=== PATIENT | female | born 1990 | race American Indian/Alaskan Native ===

== ENCOUNTER 2017-02-04 01:44 | Emergency (ER) | payer SELFPAY ==
[2017-02-04 02:34] LABS: Bacteria,Urine 1+ /HPF (Negative); Bilirubin,Urine NEG (Negative); Blood,Urine NEG (Negative); Ketones,Urine NEG (Negative); Leukocyte Esterase,Urine NEG (Negative); Mucus,Urine FEW /HPF; Nitrite,Urine NEG (Negative); RBC,Urine < 1.0 /HPF (0.0-6.0); Urobilinogen,Urine < 2.0 mg/dL (<2.0)
[2017-02-04 02:47] LABS: Basophils % (Auto) 0.4 % (0.0-1.8); Eosinophils % (Auto) 0.4 % (0.0-4.3); Hemoglobin 10.4 gm/dl (10.1-14.3); Mean Corpuscular HGB Conc 33 % (30-34); Mean Corpuscular Hemoglobin 28 pg (28-32); Mean Corpuscular Volume 86 fl (79-97); Platelet Count 487 K/mm3 (140-440); Red Blood Count 3.71 M/mm3 (3.65-5.03); Red Cell Distribution Width 15.6 % (13.2-15.2); White Blood Count 5.1 K/mm3 (4.5-11.0)
[2017-02-04 03:04] LABS: Alanine Aminotransferase 112 units/L (7-56); Albumin 3.5 g/dL (3.9-5); Albumin/Globulin Ratio 0.5 %; Alkaline Phosphatase 146 units/L (35-129); Anion Gap 23 mmol/L; BUN/Creatinine Ratio 13.33; Blood Urea Nitrogen 12 mg/dL (7-17); Carbon Dioxide 10 mmol/L (22-30); Chloride 102.7 mmol/L (98-107); Glucose 135 mg/dL (65-100); Lipase 33 units/L (13-60); Potassium 3.9 mmol/L (3.6-5.0); Sodium 132 mmol/L (137-145); Total Protein 10.6 g/dL (6.3-8.2)
[2017-02-04] MEDS ORDERED: TYLENOL ONE (03:31)
[2017-02-04] MEDS: TYLENOL PO ONE ×2 (03:32→04:14)
[2017-02-04] MEDS ORDERED: ZOFRAN ODT PO ONE (03:33)
[2017-02-04] MEDS ORDERED: ZOFRAN ODT ONE (03:33)
[2017-02-04] MEDS ORDERED: MORPHINE IV ONE (10:31)
[2017-02-04] MEDS ORDERED: ZOFRAN IV ONE (10:31)
[2017-02-04] MEDS ORDERED: NACL 0.9% 1000 ML 1,000 ML IV ONE (10:31)
--- NOTE | 2017-02-04 10:46 | Emergency Department Report ---
ED N/V/D HPI - General Chief complaint: Nausea/Vomiting/Diarrhea Stated complaint: CP/VOMITING/WEAKNESS Time Seen by Provider: 02/04/17 10:01 Source: patient, family Mode of arrival: Wheelchair Limitations: No Limitations - History of Present Illness Initial comments: 26-year-old female presents to the emergency department complaining of nausea, vomiting, and diarrhea for the past one week. Patient denies seeing any blood. She denies fever. She reports abdominal pain and pain in her upper back for the past 2 days. She also reports occasional difficulty breathing. Patient states that she is here on vacation. She lives in [place], and has been in this area for 4 weeks. There are no other complaints. MD complaint: nausea, vomiting, diarrhea, abdominal pain -: Gradual, week(s) (1) Description of Vomiting: food contents, watery Description of Diarrhea: water Associated Abdominal Pain: Yes Location: RUQ, epigastric Radiation: other (upper back) Severity: moderate Pain Scale: 5 Quality: sharp Consistency: intermittent Improves with: none Worsens with: none Associated Symptoms: loss of appetite - Related Data Previous Rx's Medication Instructions Recorded Last Taken Type Diphenoxylate/Atropine [Lomotil] 1 tab PO Q4H PRN #20 tablet 02/04/17 Unknown Rx HYDROcodone/APAP 5-325 [[place] 1 each PO Q6HR PRN #20 tablet 02/04/17 Unknown Rx 5/325] Levofloxacin [Levaquin TAB] 500 mg PO QDAY #14 tablet 02/04/17 Unknown Rx Promethazine [Phenergan TAB] 25 mg PO Q6HR PRN #20 tab 02/04/17 Unknown Rx Allergies Allergy/AdvReac Type Severity Reaction Status Date / Time No Known Allergies Allergy Verified 02/04/17 01:57 ED Review of Systems ROS: Stated complaint: CP/VOMITING/WEAKNESS Other details as noted in HPI Comment: All other systems reviewed and negative Constitutional: weakness Respiratory: shortness of breath Gastrointestinal: abdominal pain, nausea, vomiting, diarrhea ED Past Medical Hx - Past Medical History Previous Medical History?: No - Surgical History Past Surgical History?: Yes Additional Surgical History: C-Sec x 2 - Family History Family history: no significant - Social History Smoking Status: Never Smoker Substance Use Type: None - Medications Home Medications: Home Medications Medication Instructions Recorded Confirmed Last Taken Type Diphenoxylate/Atropine [Lomotil] 1 tab PO Q4H PRN #20 tablet 02/04/17 Unknown Rx HYDROcodone/APAP 5-325 [[place] 1 each PO Q6HR PRN #20 tablet 02/04/17 Unknown Rx 5/325] Levofloxacin [Levaquin TAB] 500 mg PO QDAY #14 tablet 02/04/17 Unknown Rx Promethazine [Phenergan TAB] 25 mg PO Q6HR PRN #20 tab 02/04/17 Unknown Rx ED Physical Exam - General Limitations: No Limitations General appearance: alert, in no apparent distress - Head Head exam: Present: atraumatic, normocephalic - Eye Eye exam: Present: normal appearance, PERRL, EOMI - ENT ENT exam: Present: normal exam, normal orophraynx, mucous membranes moist - Neck Neck exam: Present: normal inspection, full ROM. Absent: tenderness - Respiratory Respiratory exam: Present: normal lung sounds bilaterally. Absent: respiratory distress - Cardiovascular Cardiovascular Exam: Present: normal rhythm, tachycardia, normal heart sounds - GI/Abdominal GI/Abdominal exam: Present: soft, tenderness (mild RUQ tenderness to palpation) , normal bowel sounds. Absent: distended, guarding, rebound - Extremities Exam Extremities exam: Present: normal inspection, full ROM. Absent: tenderness - Back Exam Back exam: Present: normal inspection, full ROM. Absent: tenderness - Neurological Exam Neurological exam: Present: alert, oriented X3. Absent: motor sensory deficit - Skin Skin exam: Present: warm, dry, intact ED Course Vital Signs 02/04/17 02/04/17 02/04/17 01:45 06:48 06:58 Temperature 98.5 F Pulse Rate 115 H 108 H Respiratory 18 15 Rate Blood Pressure 102/68 Blood Pressure [Left] Blood Pressure 103/69 [Right] O2 Sat by Pulse 99 99 Oximetry 02/04/17 02/04/17 07:06 09:48 Temperature 97.6 F 97.9 F Pulse Rate 107 H 99 H Respiratory 14 17 Rate Blood Pressure Blood Pressure 96/63 [Left] Blood Pressure 101/71 [Right] O2 Sat by Pulse 99 99 Oximetry ED Medical Decision Making - Lab Data Result diagrams: 02/04/17 02:18 02/04/17 02:18 - Radiology Data Radiology results: report reviewed, image reviewed Abdominal ultrasound reveals gallbladder sludge without evidence of discrete stones. There is no evidence of cholecystitis. There are no other abnormalities. - Medical Decision Making Lab and imaging results reviewed and discussed the patient. She reports feeling much better with fluids and medication. I also spoke with Dr. Lewis, surgery. He states patient can be discharged home on pain medication and oral anti-biotics to follow up in his office. This was discussed with the patient who agrees. - Differential Diagnosis gastroenteritis, cholelithiasis, cholecystitis, dehydration Critical care attestation.: If time is entered above; I have spent that time in minutes in the direct care of this critically ill patient, excluding procedure time. ED Disposition Clinical Impression: Gallbladder sludge Abdominal pain Qualifiers: Abdominal location: right upper quadrant Qualified Code(s): R10.11 - Right upper quadrant pain Disposition: TO HOME OR SELFCARE Is pt being admited?: No Condition: Stable Instructions: Acute Nausea and Vomiting (ED) Prescriptions: Diphenoxylate/Atropine [Lomotil] 1 tab PO Q4H PRN #20 tablet PRN Reason: Diarrhea HYDROcodone/APAP 5-325 [[place] 5/325] 1 each PO Q6HR PRN #20 tablet PRN Reason: Pain Levofloxacin [Levaquin TAB] 500 mg PO QDAY #14 tablet Promethazine [Phenergan TAB] 25 mg PO Q6HR PRN #20 tab PRN Reason: Nausea Referrals: VERENA LEWIS MD [Staff Physician] - 3-5 Days Time of Disposition: 13:00
--- NOTE | 2017-02-04 11:20 | Ultrasound Report ---
Limited abdominal ultrasound: Right upper quadrant pain, nausea and vomiting, elevated LFTs. Images of the liver are echogenically normal. The gallbladder may contain a small amount of sludge but there is no obvious calculus. The dias are not thickened. No pericholecystic fluid. The diameter of the CBD is 17 mm. Images of the pancreas are unremarkable. The kidney has a normal reniform shape and echo pattern. It appears however to be possibly rotated based on its contour. It measures 10.8 cm in length and is not otherwise remarkable. The transverse diameter of the proximal abdominal aorta to 16 mm. Impressions: Suspicion of gallbladder sludge. No acute pathology identified.
[2017-02-04 13:17] VITALS: BP 99/67
== END 2017-02-04 13:14 | disposition home or self-care (01) ==
LOC: ED 01:44
DX: K82.9 Disease of gallbladder, unspecified (principal)
CPT/HCPCS: 36415; 76705; 80053; 81001; 83690; 84484; 85025; 87040; 93005; 93010; 96361; 96374; 96375; 99285; J2270; J2405; J7030; Q0162